=== PATIENT | female | born 1955 | race Caucasian/White ===

== ENCOUNTER 2016-08-02 12:58 | Inpatient (IN) | payer OTHER ==
[2016-08-03] MEDS: CYCLOBENZAPRINE 10 MG TAB PO PRN ×2 (15:36→21:30)
[2016-08-03] MEDS ORDERED: BISACODYL 10 MG SUPP PR PRN (15:48)
[2016-08-03] MEDS ORDERED: oxyCODONE IR 5 MG TAB PO PRN (15:49)
[2016-08-03] MEDS: ACETAMINOPHEN 500 MG TAB PO SCH ×2 (16:06→21:17)
--- NOTE | 2016-08-03 16:40 | PDOREHIP ---
Admission [facility] - Admission - 3 Day Assessment Period Admission Date/Day 1: 08/03/16 Day 2: 08/04/16 Day 3: 08/05/16 - Active Diagnoses Comorbidities and Co-existing Conditions at Admission: 24039. None of the Above - Skin Conditions Unhealed Pressure Ulcer (1 or more/Stage 1 or >)-Admission: 0. No
[2016-08-03] MEDS: NYSTATIN SUSP 500000 UNIT/5 ML UDCUP PO SCH ×2 (17:18→21:16)
[2016-08-03] MEDS ORDERED: NON-FORMULARY NEW DRUG (Nystatin Susp 5 ML) PO SCH (18:00)
--- NOTE | 2016-08-03 18:04 | GHP ---
[f rep st] HISTORY AND PHYSICAL POST ADMISSION PHYSICIAN EVALUATION AND REHABILITATION TREATMENT PLAN DATE OF ADMISSION: 08/03/2016 DATE OF EVALUATION: 08/03/2016 TIME OF EVALUATION: 1330 REFERRING FACILITY: [facility]. REFERRING PHYSICIAN: Dr. Arellano. IMPAIRMENT GROUP: 14.9 DATE OF ONSET: 07/27/2016 CONSULTING PHYSICIANS: She was seen in consultation by Dr. Garcia with Orthopedic Surgery. REHABILITATION DIAGNOSIS: Multiple trauma with L4 compression fracture and multiple pelvic fractures, status post fall while skiing. ETIOLOGIC DIAGNOSIS: Other multiple trauma. HISTORY OF PRESENT ILLNESS: Mrs. Oliver was skiing at [place] on an easy run when she fell and had immediate pain, and was taken to the [facility]. Imaging there demonstrated fractures. She was transferred to [facility] in [place], where further imaging showed a compression fracture at L4 with ventral epidural hematoma which was indenting the ventral thecal sac and causing mild central canal stenosis, a fracture of the right superior and inferior pubic rami, and an occult right sacral fracture. She was treated with pain control, she was observed for any neurologic compromise. Finally, she was stabilized and transferred to [facility] for rehabilitation of her injuries. STUDIES AND LABS IN THE HOSPITAL: Imaging is as described above. CT of the abdomen and pelvis to rule out traumatic injury showed no solid or hollow visceral organ injury. There were right middle lobe and left lower lobe pulmonary nodules seen, which were most likely benign. There were some cysts noted in the liver. Lab studies: On 07/27/2016, CBC showed a normal white count, hemoglobin was 12.4, hematocrit was 36.3, platelets were 239. A basic metabolic profile on 07/2016, showed normal renal function and electrolytes. Her calcium was somewhat low at 7.9. Normal liver function tests. Her lactic acid was not elevated. PAIN CONTROL: Pain control was initially achieved with patient-controlled analgesia. She was subsequently transitioned to oral long-acting morphine. Cyclobenzaprine was added for muscle spasm. PRECAUTIONS: She is a fall risk, and she has orthopedic spinal precautions with no bending, lifting or twisting of the lumbar spine. PAST MEDICAL HISTORY: 1. Hypothyroidism. 2. Anxiety. 3. Prior fracture of the left shoulder from a ski injury. 4. Osteopenia. PAST SURGICAL HISTORY: She denies history of previous surgeries. PRE-HOSPITAL MEDICATIONS: She was taking vitamin D, omega-3 fatty acids, venlafaxine 37.5 mg daily, and levothyroxine 125 mcg daily. ADMISSION MEDICATIONS: 1. Cholecalciferol 1000 units p.o. daily. 2. Cyclobenzaprine 10 mg p.o. t.i.d. p.r.n. 3. Levothyroxine 125 mcg p.o. daily. 4. Morphine SR 50 mg p.o. twice daily. 5. Nystatin 500,000 units p.o. 5 times a day. 6. Beatty-3 fatty acids 1000 mg p.o. daily. 7. Venlafaxine XR 37.5 mg p.o. daily. 8. Vitamin B complex 1 p.o. daily. ALLERGIES: There are no known drug allergies. FAMILY HISTORY: Noncontributory. PSYCHOSOCIAL HISTORY: She is . She lives with her . She is not currently working. Her mother lives with them, on hospice. This patient's major activities have been taking care of her mother and coordinating her care. She is a nonsmoker. She uses occasional alcohol and occasional marijuana. REVIEW OF SYSTEMS: She denies fevers or chills, weight gain or weight loss, feeling excessively hot or cold, cough, dyspnea, chest pain, palpitations, nausea or vomiting. She has constipation, she has a reduced appetite. Her last bowel movement was 2 days ago, after being given a suppository. She denies joint pain or joint swelling other than in her right groin, where she has increased pain with weightbearing. She denies skin rash or skin breakdown. She denies any symptoms of head trauma including no headache; vision changes; difficulty swallowing; weakness, numbness or tingling of the extremities. She denies tremor. CURRENT LEVEL OF FUNCTION: Per the preadmission screen. Regarding diet, feeding, and swallowing, she required set up. For grooming, she required set up. For bathing, she needed assistance. For dressing, she needed maximal assistance to don the Luis brace. For toileting, she needed assistance. For bed mobility, she needed contact guard to minimal assistance. For transfers, she required contact guard assistance. Balance was poor. Endurance was poor. She was able to ambulate 150 feet with contact guard assist using a front- wheeled walker. Communication was within normal limits. Regarding cognition, she was noted to need some cues to maintain spinal precautions. IMPRESSION: Mrs. Oliver is a 61-year-old woman who had a low velocity fall while skiing and suffered significant fractures including an L4 compression fracture with a ventral hematoma causing compression of the thecal sac, superior and inferior pubic rami fractures, and an occult sacral fracture. She was hospitalized long enough to ensure that there were no neurologic consequences of the ventral hematoma, and that pain was adequately controlled. She is appropriate for inpatient rehabilitation. She will benefit from physical and occupational therapy to optimize her mobility and activities of daily living. She will benefit from rehabilitation nursing regarding fall risk , bowel and bladder, skin integrity, medication management and medication education. She will be benefit from the care of a physician primarily regarding pain control, and also regarding bowel and bladder, and adverse side effects of pain medications. Her goal is to complete rehabilitation and return home with her family. For a safe discharge, she will need to achieve modified independence for mobility and ADLs. She will need to be able to adhere to her spinal precautions. She will need to be able to don her back brace with contact guard assist. She will need to achieve medication management. She will need to have her pain controlled, and there will need to be family training education. She will have therapy with physical therapy and occupational therapy for 90 minutes per day for each discipline, on 5-7 days per week. Her expected duration of stay is 7-10 days. It is anticipated that upon discharge, she will continue to benefit from home health services, including occupational therapy and physical therapy. ASSESSMENT AND PLAN: 1. L4 vertebral compression fracture and right-sided pelvic fractures. Pain control will be continued as ordered out of the hospital with morphine SR 15 mg twice daily and cyclobenzaprine 10 mg t.i.d. p.r.n. Additionally, acetaminophen will be prescribed at 1000 mg scheduled t.i.d. and oxycodone will be prescribed at 5 to 10 mg q.3 hours p.r.n. 2. Debility status post multiple trauma. Physical and occupational therapy to optimize mobility and activities of daily living. 3. Constipation. Polyethylene glycol and senna have been scheduled, and a bisacodyl suppository has been added as a p.r.n. 4. Likely osteoporosis. This was discussed with the patient, that though her bone density scan showed osteopenia, the multiple fractures indicate that she truly does have osteoporosis. She is advised to follow up with her primary care provider or with an song writer after discharge to consider anti- reabsorptive medications. We will continue cholecalciferol at 1000 units daily. If there are other indications for blood tests, we will recheck her vitamin D level. 5. Hypothyroidism. Continue levothyroxine. 6. History of anxiety. Continue venlafaxine. 7. Prophylaxis: We will continue enoxaparin that was ordered out of the hospital, though anticipate that this will be discontinued as her mobility improves. /[id number]/MODL MTDD
[2016-08-03] MEDS: morphINE SR 15 MG TAB PO SCH (21:16)
[2016-08-03] MEDS: SENNOSIDES 1 TAB PO SCH (21:17)
[2016-08-04] MEDS: LEVOTHYROXINE 125 MCG TAB PO SCH (06:22)
[2016-08-04] MEDS: CYCLOBENZAPRINE 10 MG TAB PO PRN ×2 (06:23→21:24)
[2016-08-04] MEDS: NYSTATIN SUSP 500000 UNIT/5 ML UDCUP PO SCH ×5 (06:23→21:24)
[2016-08-04] MEDS: ACETAMINOPHEN 500 MG TAB PO SCH ×3 (07:23→21:25)
[2016-08-04] MEDS: SENNOSIDES 1 TAB PO SCH ×2 (07:24→21:25)
[2016-08-04] MEDS: CHOLECALCIFEROL VIT D3 1,000 UNITS TAB PO SCH (07:24)
[2016-08-04] MEDS: VITAMIN B COMPLEX 1 EA CAP/TAB PO SCH (07:25)
[2016-08-04] MEDS: OMEGA-3 FATTY ACIDS 1,000 MG CAP PO SCH (07:25)
[2016-08-04] MEDS: VENLAFAXINE XR 37.5 MG CAP PO SCH (07:25)
[2016-08-04] MEDS: POLYETHYLENE GLYCOL 3350 17 GM PKT PO SCH (07:25)
[2016-08-04] MEDS: morphINE SR 15 MG TAB PO SCH ×2 (07:26→21:25)
--- NOTE | 2016-08-04 08:25 | SOAPPROG ---
SOAP Progress Note Assessment/Plan: Assessment: 61 yo F s/p fall while skiing 07/27/16 with L4 vertebral compression fracture, ventral hematoma causing thecal sac compression, and pelvic fractures (R superior and inferior pubic rami, R sacrum) * L4 vertebral compression fracture and right-sided pelvic fractures. Adequate pain control with morphine SR 15 mg twice daily, cyclobenzaprine 10 mg t.i.d. p.r.n. and acetaminophen 1000 mg scheduled t.i.d. Oxycodone is available 5 to 10 mg q.3 hours p.r.n. but she has not used it. * Debility status post multiple trauma. Physical and occupational therapy to optimize mobility and activities of daily living. * Constipation. Polyethylene glycol and senna have been scheduled, and a bisacodyl suppository has been added as a p.r.n. * Likely osteoporosis. Bone density scan showed osteopenia, but multiple fractures indicate that she truly does have osteoporosis. She is advised to follow up with her primary care provider or with an embedder after discharge to consider anti-reabsorptive medications. Continue cholecalciferol at 1000 units daily. If there are other indications for blood tests, we will recheck her vitamin D level. * Hypothyroidism. Continue levothyroxine. * History of anxiety. Continue venlafaxine. * Prophylaxis: We will continue enoxaparin that was ordered out of the hospital , though anticipate that this will be discontinued as her mobility improves. Follow-up with Orthopedic Spine at [facility] week of 08/16/16. Follow -up with Orthopedics Dr. Garcia. Follow-up chest CT in early October 2016 regarding pulmonary nodules. Follow-up with PCP or Endocrinology regarding osteoporosis. 08/04/16 09:42 Subjective: Has some pain 3 - 4/10 with movement or weightbearing. Slept well; pain did not interfere. No cough/dyspnea, f/c. Objective: Vital Signs Temp Pulse Resp BP Pulse Ox 36.9 C 65 16 110/64 94 08/04/16 06:40 08/04/16 06:40 08/04/16 06:40 08/04/16 06:40 08/04/16 06:40 08/03/16 08/04/16 08/05/16 05:59 05:59 05:59 Intake Total 1000 Output Total 1400 Balance -400 ICD10 Worksheet Patient Problems: Problems Problem Status Onset Compression fracture of L4 lumbar vertebra Acute Epidural hematoma Acute Multiple pelvic fractures Acute
[2016-08-05] MEDS: CYCLOBENZAPRINE 10 MG TAB PO PRN ×2 (06:28→21:30)
[2016-08-05] MEDS: LEVOTHYROXINE 125 MCG TAB PO SCH (06:28)
[2016-08-05] MEDS: NYSTATIN SUSP 500000 UNIT/5 ML UDCUP PO SCH ×5 (06:29→21:30)
[2016-08-05] MEDS: POLYETHYLENE GLYCOL 3350 17 GM PKT PO SCH (09:48)
[2016-08-05] MEDS: VITAMIN B COMPLEX 1 EA CAP/TAB PO SCH (09:48)
[2016-08-05] MEDS: CHOLECALCIFEROL VIT D3 1,000 UNITS TAB PO SCH (09:48)
[2016-08-05] MEDS: VENLAFAXINE XR 37.5 MG CAP PO SCH (09:48)
[2016-08-05] MEDS: SENNOSIDES 1 TAB PO SCH ×2 (09:48→21:30)
[2016-08-05] MEDS: OMEGA-3 FATTY ACIDS 1,000 MG CAP PO SCH (09:48)
[2016-08-05] MEDS: ACETAMINOPHEN 500 MG TAB PO SCH ×3 (09:48→21:30)
[2016-08-05] MEDS: morphINE SR 15 MG TAB PO SCH ×2 (09:49→21:30)
--- NOTE | 2016-08-05 14:07 | SOAPPROG ---
SOAP Progress Note Assessment/Plan: Assessment: 61 yo F s/p fall while skiing 07/27/16 with L4 vertebral compression fracture, ventral hematoma causing thecal sac compression, and pelvic fractures (R superior and inferior pubic rami, R sacrum) * L4 vertebral compression fracture and right-sided pelvic fractures. Adequate pain control with morphine SR 15 mg twice daily, cyclobenzaprine 10 mg t.i.d. p.r.n. and acetaminophen 1000 mg scheduled t.i.d. Oxycodone is available 5 to 10 mg q.3 hours p.r.n. but she has not used it. * Debility status post multiple trauma. Physical and occupational therapy to optimize mobility and activities of daily living. * Constipation. Polyethylene glycol and senna have been scheduled, and a bisacodyl suppository has been added as a p.r.n. * Likely osteoporosis. Bone density scan showed osteopenia, but multiple fractures indicate that she truly does have osteoporosis. She is advised to follow up with her primary care provider or with an airborne operations manager after discharge to consider anti-reabsorptive medications. Continue cholecalciferol at 1000 units daily. If there are other indications for blood tests, we will recheck her vitamin D level. * Hypothyroidism. Continue levothyroxine. * History of anxiety. Continue venlafaxine. * Prophylaxis: Mobility has improved. She's ambulating 120'3x/day. Will d/c SCDs.. Follow-up with Orthopedic Spine at [facility] week of 08/16/16. Follow -up with Orthopedics Dr. Garcia. Follow-up chest CT in early October 2016 regarding pulmonary nodules. Follow-up with PCP or Endocrinology regarding osteoporosis. 08/05/16 14:06 Subjective: Pain adequately controlled. SCDs interfere with sleep and she requests D/C. O/ W w/out complaint. No f/c, cough/dyspnea. Objective: Vital Signs Temp Pulse Resp BP Pulse Ox 36.7 C 66 16 103/63 93 08/05/16 06:47 08/05/16 06:47 08/05/16 06:47 08/05/16 06:47 08/05/16 06:47 08/04/16 08/05/16 08/06/16 05:59 05:59 05:59 Intake Total 1000 1490 300 Output Total 1400 1800 775 Balance -400 -310 -475 Physical Exam - Physical Exam General Appearance: WD/WN, alert, no apparent distress Respiratory: normal breath sounds, No crackles, No rhonchi, No wheezing Cardiac/Chest: regular rate, rhythm, No edema, No diastolic murmur, No systolic murmur Skin: normal color, warm/dry Neuro/Psych: no motor/sensory deficits, alert, normal mood/affect, oriented x 3 ICD10 Worksheet Patient Problems: Problems Problem Status Onset Compression fracture of L4 lumbar vertebra Acute Epidural hematoma Acute Multiple pelvic fractures Acute
[2016-08-06] MEDS: NYSTATIN SUSP 500000 UNIT/5 ML UDCUP PO SCH ×2 (06:19→09:54)
[2016-08-06] MEDS: LEVOTHYROXINE 125 MCG TAB PO SCH (06:19)
[2016-08-06] MEDS: CYCLOBENZAPRINE 10 MG TAB PO PRN (06:19)
[2016-08-06 07:14] VITALS: RESP 16
[2016-08-06] MEDS: OMEGA-3 FATTY ACIDS 1,000 MG CAP PO SCH (09:49)
[2016-08-06] MEDS: CHOLECALCIFEROL VIT D3 1,000 UNITS TAB PO SCH (09:49)
[2016-08-06] MEDS: VITAMIN B COMPLEX 1 EA CAP/TAB PO SCH (09:49)
[2016-08-06] MEDS: VENLAFAXINE XR 37.5 MG CAP PO SCH (09:50)
[2016-08-06] MEDS: morphINE SR 15 MG TAB PO SCH ×2 (09:50→21:29)
[2016-08-06] MEDS: ACETAMINOPHEN 500 MG TAB PO SCH ×3 (09:50→21:29)
[2016-08-06] MEDS: POLYETHYLENE GLYCOL 3350 17 GM PKT PO SCH (09:50)
[2016-08-06] MEDS: SENNOSIDES 1 TAB PO SCH ×2 (09:50→21:29)
--- NOTE | 2016-08-06 09:54 | SOAPPROG ---
SOAP Progress Note Assessment/Plan: Assessment: 61 yo F s/p fall while skiing 07/27/16 with L4 vertebral compression fracture, ventral hematoma causing thecal sac compression, and pelvic fractures (R superior and inferior pubic rami, R sacrum) * Debility status post multiple trauma. Initial FIM 98. SBA for bed mobility. Supervision for transfers. I for UB dressing including back brace; mod I for LB. Continue physical and occupational therapy to optimize mobility and activities of daily living. * L4 vertebral compression fracture and right-sided pelvic fractures. Discussed pain management 08/06/16. Change morphine SR 15 mg from BID to QD starting 08/07/16. Continue oxycodone 5 - 10 mg Q 3 - 4 hr PRN. Continue cyclobenzaprine 10 mg t.i.d. p.r.n. and acetaminophen 1000 mg scheduled t.i.d. * Thrush? Has been on nystatin starting during her acute hospitalization. Symptoms are improved but not resolved; no thrush seen on exam. D/C nystatin. If symptoms worsen, would treat with clotrimazole dixon. Unclear why she would have thrush, other than stress? * Constipation. Polyethylene glycol and senna have been scheduled, and a bisacodyl suppository has been added as a p.r.n. * Likely osteoporosis. Bone density scan showed osteopenia, but multiple fractures indicate that she truly does have osteoporosis. She is advised to follow up with her primary care provider or with an chief operating officer after discharge to consider anti-reabsorptive medications. Continue cholecalciferol at 1000 units daily. If there are other indications for blood tests, we will recheck her vitamin D level. * Hypothyroidism. Continue levothyroxine. * History of anxiety. Continue venlafaxine. * Prophylaxis: Mobility has improved. She's ambulating 120' 3x/day. Will d/c SCDs.. Attended staffing, 15 min. D/W case mgmt, nursing, day care provider, pharmacist, PT, OT. Doing well, plan for discharge home 08/09/16. Follow-up with Orthopedic Spine at [facility] week of 08/16/16. Follow -up with Orthopedics Dr. Garcia. Follow-up chest CT in early October 2016 regarding pulmonary nodules. Follow-up with PCP or Endocrinology regarding osteoporosis. 08/06/16 13:49 Subjective: Still has some throat discomfort. O/W w/out complaints. No f/c, cough/ dyspnea. Pain adequately controlled. Objective: Vital Signs Temp Pulse Resp BP Pulse Ox 36.8 C 64 16 112/69 97 08/06/16 07:13 08/06/16 07:13 08/06/16 07:13 08/06/16 07:13 08/06/16 07:13 08/05/16 08/06/16 08/07/16 05:59 05:59 05:59 Intake Total 1490 1540 Output Total 1800 1675 Balance -310 -135 - Time Spent With Patient Time Spent With Patient: Greater than 35 minutes floor time today, including more than 50% of time in coordination of care during staffing, and counseling patient. Physical Exam - Physical Exam General Appearance: WD/WN, alert, no apparent distress EENT: normal ENT inspection (No mucosal erythema/exudate/plaques. Mallampati class 3 and posterior oropharynx not well visualized.) Respiratory: No respiratory distress, No accessory muscle use Skin: normal color, warm/dry ICD10 Worksheet Patient Problems: Problems Problem Status Onset Compression fracture of L4 lumbar vertebra Acute Epidural hematoma Acute Multiple pelvic fractures Acute
[2016-08-06] MEDS ORDERED: oxyCODONE IR 5 MG TAB PO PRN (13:53)
[2016-08-07] MEDS: LEVOTHYROXINE 125 MCG TAB PO SCH (05:52)
[2016-08-07] MEDS: ACETAMINOPHEN 500 MG TAB PO SCH ×3 (08:21→21:32)
[2016-08-07] MEDS: POLYETHYLENE GLYCOL 3350 17 GM PKT PO SCH (08:21)
[2016-08-07] MEDS: CHOLECALCIFEROL VIT D3 1,000 UNITS TAB PO SCH (08:22)
[2016-08-07] MEDS: SENNOSIDES 1 TAB PO SCH ×2 (08:22→21:18)
[2016-08-07] MEDS: OMEGA-3 FATTY ACIDS 1,000 MG CAP PO SCH (08:22)
[2016-08-07] MEDS: VITAMIN B COMPLEX 1 EA CAP/TAB PO SCH (08:22)
[2016-08-07] MEDS: VENLAFAXINE XR 37.5 MG CAP PO SCH (08:24)
--- NOTE | 2016-08-07 11:12 | SOAPPROG ---
SOAP Progress Note Assessment/Plan: Assessment: * Debility status post multiple trauma. Initial FIM 98. SBA for bed mobility. Supervision for transfers. I for UB dressing including back brace; mod I for LB. Continue physical and occupational therapy to optimize mobility and activities of daily living. D/W PT AND OT THAT PATIENT NEEDS TO BE CLEARED FOR HI WITH FWW IN ROOM AND HALLS PRIOR TO D/C * L4 vertebral compression fracture and right-sided pelvic fractures. Discussed pain management 08/06/16. Change morphine SR 15 mg from BID to QD starting 08/07/16. Continue oxycodone 5 - 10 mg Q 3 - 4 hr PRN. Continue cyclobenzaprine 10 mg t.i.d. p.r.n. and acetaminophen 1000 mg scheduled t.i.d. D/W PATIENT PAIN MANAGEMENT STRATEGIES INCLUDING CONTINUING THE MORPHINE AT NIGHT FOR 3-4 MORE DAYS AND TAKE TYLENOL Q4-6 HRS AND IF NEEDED OXYCODONE 5-10 MG FOR PAIN LEVEL ABOVE 5. SHE WILL NOT EXCEED 2400 MG OF TYLENOL PER DAY. * Thrush? Has been on nystatin starting during her acute hospitalization. Symptoms are improved but not resolved; no thrush seen on exam. D/C nystatin. If symptoms worsen, would treat with clotrimazole dixon. Unclear why she would have thrush, other than stress? SXS STABLE. ? ALLERGY RELATED. ADVISED THAT SHE SHOULD SEE ENT AFTER D/C IF SXS PERSIST. * Constipation. Polyethylene glycol and senna have been scheduled, and a bisacodyl suppository has been added as a p.r.n. * Likely osteoporosis. Bone density scan showed osteopenia, but multiple fractures indicate that she truly does have osteoporosis. She is advised to follow up with her primary care provider or with an motion picture camera operator after discharge to consider anti-reabsorptive medications. Continue cholecalciferol at 1000 units daily. If there are other indications for blood tests, we will recheck her vitamin D level. * Hypothyroidism. Continue levothyroxine. * History of anxiety. Continue venlafaxine. * Prophylaxis: Mobility has improved. She's ambulating 120' 3x/day. Will d/c SCDs.. Plan: 08/07/16 11:14 Subjective: She reports current pain level as 2/10. She reports she took Tylenol this am. She c/o some hoarseness which has been present for 2 weeks. She denies dysphagia. She expresses no difficulty with trying to wean off opiates. Objective: Vital Signs Temp Pulse Resp BP Pulse Ox 36.7 C 66 16 129/75 H 95 08/07/16 06:18 08/07/16 06:18 08/07/16 06:18 08/07/16 06:18 08/07/16 06:18 08/06/16 08/07/16 08/08/16 05:59 05:59 05:59 Intake Total 1540 1640 Output Total 1675 2201 600 Balance -135 -461 -600 Physical Exam - Physical Exam General Appearance: WD/WN, alert, no apparent distress EENT: PERRL/EOMI, pharyngeal erythema Neck: non-tender, supple Respiratory: lungs clear, normal breath sounds Cardiac/Chest: No edema Abdomen: normal bowel sounds, non-tender, soft Back: Other (TLSO IN PLACE.) Skin: normal color, No warm/dry Neuro/Psych: alert, normal mood/affect, oriented x 3, abnormal gait (STEP TO GAIT WITH WALKER. NO EVIDENCE OF KNEE OR ANKLE INSTABILITY.) ICD10 Worksheet Patient Problems: Problems Problem Status Onset Compression fracture of L4 lumbar vertebra Acute Epidural hematoma Acute Multiple pelvic fractures Acute
[2016-08-07] MEDS: CYCLOBENZAPRINE 10 MG TAB PO PRN (14:01)
[2016-08-07] MEDS: morphINE SR 15 MG TAB PO SCH (21:18)
[2016-08-08] MEDS: LEVOTHYROXINE 125 MCG TAB PO SCH (06:17)
[2016-08-08] MEDS: SENNOSIDES 1 TAB PO SCH ×2 (09:24→21:11)
[2016-08-08] MEDS: ACETAMINOPHEN 500 MG TAB PO SCH ×3 (09:24→21:00)
[2016-08-08] MEDS: VENLAFAXINE XR 37.5 MG CAP PO SCH (09:24)
[2016-08-08] MEDS: OMEGA-3 FATTY ACIDS 1,000 MG CAP PO SCH (09:24)
[2016-08-08] MEDS: POLYETHYLENE GLYCOL 3350 17 GM PKT PO SCH (09:24)
[2016-08-08] MEDS: CHOLECALCIFEROL VIT D3 1,000 UNITS TAB PO SCH (09:25)
[2016-08-08] MEDS: VITAMIN B COMPLEX 1 EA CAP/TAB PO SCH (09:25)
--- NOTE | 2016-08-08 12:20 | SOAPPROG ---
SOAP Progress Note Assessment/Plan: Assessment: * Debility status post multiple trauma. Initial FIM 98. SBA for bed mobility. Supervision for transfers. I for UB dressing including back brace; mod I for LB. Continue physical and occupational therapy to optimize mobility and activities of daily living. D/W PT AND OT THAT PATIENT NEEDS TO BE CLEARED FOR MT WITH FWW IN ROOM AND HALLS PRIOR TO D/C * L4 vertebral compression fracture and right-sided pelvic fractures. Discussed pain management 08/06/16. Change morphine SR 15 mg from BID to QD starting 08/07/16. Continue oxycodone 5 - 10 mg Q 3 - 4 hr PRN. Continue cyclobenzaprine 10 mg t.i.d. p.r.n. and acetaminophen 1000 mg scheduled t.i.d. D/W PATIENT PAIN MANAGEMENT STRATEGIES INCLUDING CONTINUING THE MORPHINE AT NIGHT FOR 3-4 MORE DAYS AND TAKE TYLENOL Q4-6 HRS AND IF NEEDED OXYCODONE 5-10 MG FOR PAIN LEVEL ABOVE 5. SHE WILL NOT EXCEED 3000 MG OF TYLENOL PER DAY. * Thrush? Has been on nystatin starting during her acute hospitalization. Symptoms are improved but not resolved; no thrush seen on exam. D/C nystatin. If symptoms worsen, would treat with clotrimazole dixon. Unclear why she would have thrush, other than stress? SXS STABLE. ? ALLERGY RELATED. ADVISED THAT SHE SHOULD SEE ENT AFTER D/C IF SXS PERSIST. * Constipation. Polyethylene glycol and senna have been scheduled, and a bisacodyl suppository has been added as a p.r.n. * Likely osteoporosis. Bone density scan showed osteopenia, but multiple fractures indicate that she truly does have osteoporosis. She is advised to follow up with her primary care provider or with an ultrasonic hand solderer after discharge to consider anti-reabsorptive medications. Continue cholecalciferol at 1000 units daily. If there are other indications for blood tests, we will recheck her vitamin D level. * Hypothyroidism. Continue levothyroxine. * History of anxiety. Continue venlafaxine. * Plan: 08/07/16 11:14 08/08/16 12:19 Subjective: No complaints this am Objective: Vital Signs Temp Pulse Resp BP Pulse Ox 36.6 C 78 16 130/84 H 95 08/08/16 06:29 08/08/16 06:29 08/08/16 06:29 08/08/16 06:29 08/08/16 06:29 08/07/16 08/08/16 08/09/16 05:59 05:59 05:59 Intake Total 6503 400 Output Total 6679 2161 Balance -080 -3072 Physical Exam - Physical Exam General Appearance: WD/WN, alert, no apparent distress Neck: full range of motion, supple Respiratory: chest non-tender, lungs clear, normal breath sounds Cardiac/Chest: No edema, No JVD Abdomen: normal bowel sounds, non-tender, soft Back: Normal inspection, No CVA tenderness Skin: normal color, warm/dry Neuro/Psych: no motor/sensory deficits, alert, oriented x 3, No motor weakness, No sensory deficit ICD10 Worksheet Patient Problems: Problems Problem Status Onset Compression fracture of L4 lumbar vertebra Acute Epidural hematoma Acute Multiple pelvic fractures Acute
[2016-08-08] MEDS: morphINE SR 15 MG TAB PO SCH (21:00)
[2016-08-09] MEDS: LEVOTHYROXINE 125 MCG TAB PO SCH (06:07)
[2016-08-09] MEDS: ACETAMINOPHEN 500 MG TAB PO SCH (07:47)
[2016-08-09] MEDS: SENNOSIDES 1 TAB PO SCH (07:49)
[2016-08-09] MEDS: VITAMIN B COMPLEX 1 EA CAP/TAB PO SCH (07:50)
[2016-08-09] MEDS: CYCLOBENZAPRINE 10 MG TAB PO PRN (07:50)
[2016-08-09] MEDS: VENLAFAXINE XR 37.5 MG CAP PO SCH (07:50)
[2016-08-09] MEDS: OMEGA-3 FATTY ACIDS 1,000 MG CAP PO SCH (07:50)
[2016-08-09] MEDS: POLYETHYLENE GLYCOL 3350 17 GM PKT PO SCH (07:54)
[2016-08-09] MEDS: CHOLECALCIFEROL VIT D3 1,000 UNITS TAB PO SCH (07:54)
[2016-08-09 08:30] VITALS: BP 111/71; PULSE 70; TEMP 98.2; O2SAT 94
--- NOTE | 2016-08-09 17:03 | PDOREHIP ---
Admission [facility] - Admission - 3 Day Assessment Period Admission Date/Day 1: 08/03/16 Day 2: 08/04/16 Day 3: 08/05/16 Discharge [facility] - Discharge - 3 Day Assessment Period 2 Days Prior to Anticipated Discharge Date: 08/07/16 1 Day Prior to Anticipated Discharge Date: 08/08/16 Anticipated Discharge Date: 08/09/16 - Discharge Skin Conditions Unhealed Pressure Ulcer (1 or more/Stage 1 or >)-Discharge: 0. No
--- NOTE | 2016-08-09 22:03 | GDS ---
[f rep st] DISCHARGE SUMMARY ADMITTING DIAGNOSIS: Multiple trauma with L4 compression fracture and multiple pelvic fractures. DISCHARGE DIAGNOSIS: Multiple trauma with L4 compression fracture and multiple pelvic fractures. CONSULTATIONS: There were none. PROCEDURES: There were none. COMPLICATIONS: There were none. HISTORY AND HOSPITAL COURSE: The patient was admitted to [facility] unit from [facility]. She had suffered a fall while skiing on 08/02/2016. She was initially evaluated at [facility] in [facility], where she was diagnosed with pelvic fractures and an L4 compression fracture. There was a hematoma on the ventral aspect of L4 in the epidural location, so she was observed for stability before transfer to [facility] in [place]. Pain control was achieved and she was transferred for inpatient rehabilitation. She had steady improvement in her function. Her initial Functional [place] Measure was 98 on 08/06/2016, wihch is consistent with [facility] level of function. She required standby assist for bed mobility and supervision for transfers. She was independent with upper body dressing, including donning and doffing her back brace. She had modified independence with assistive devices for lower body dressing. Pain control was achieved with morphine sustained-release 15 mg b.i.d. and oxycodone 5-10 mg q.3- 4 hours p.r.n. Additionally, she had cyclobenzaprine 10 mg 3 times a day as needed and acetaminophen scheduled 1000 mg 3 times a day. Her pain improved. On 08/07/2016, morphine sustained-release was changed to q.h.s. only and she was not using the oxycodone. She was using nystatin oral when she was admitted for presumed thrush. There was there was no thrush observed on oropharyngeal examination. The nystatin was discontinued. She continued to have some throat discomfort of an unclear etiology. Given that she had sustained several fractures with a relatively low impact fall , she likely has osteoporosis. She reported history of a bone density scan showing osteopenia. She was continued on cholecalciferol 1000 units daily. She was advised to follow up with primary care or an senior communications engineer to address the question of antiresorptive therapy for osteoporosis. There were no labs or imaging studies done while she was in the hospital. DISCHARGE PLAN: 1. Condition upon discharge is good. 2. Activity is ad adenike, but recommend no driving and to maintain spinal precautions for her back with no bending, lifting or twisting, until cleared by Orthopedic Surgery. 3. Diet is regular. 4. Date of next appointment: She will see orthopedic surgeon, Dr. Keeley Velasquez on 08/10/2016 and she will have follow up with her primary care provider, Dr. Kim Oro, in approximately 2 weeks. MEDICATIONS AT DISCHARGE: 1. Vitamin B complex 1 p.o. daily. 2. [place]-3 fatty acids 1000 mg p.o. daily. 3. Cholecalciferol 1000 units p.o. daily. 4. Oxycodone 5-10 mg q.3 hours p.r.n. 5. Morphine sustained-release 15 mg q.h.s. 6. Venlafaxine 37.5 mg p.o. daily. 7. Senna 1 p.o. b.i.d. 8. Polyethylene glycol 17 g p.o. daily in water. 9. Levothyroxine 125 mcg p.o. daily. 10. Cyclobenzaprine 10 mg p.o. t.i.d. p.r.n. 11. Acetaminophen 1000 mg p.o. t.i.d. ISSUES TO BE ADDRESSED AT FOLLOWUP: 1. Status of L4 compression fracture. She is to continue wearing the back brace until cleared by Orthopedic Surgery and she will have follow up with Dr. Velasquez. 2. Pain control. Her pain has been improving during her stay. She can follow up regarding any changes to her medication regimen with Dr. Velasquez or with her primary care provider, Dr. Oro. 3. Likely osteoporosis. She was advised to consider antiresorptive therapy in consultation with her primary care provider or an senior communications engineer and she should have followup testing of her vitamin D level to be sure that supplementation with 1000 mg daily is adequate. /[id number]/MODL MTDD
== END 2016-08-09 12:15 | disposition home or self-care (01) | DRG 561 ==
LOC: BREH 08-03 13:15
PROVIDERS: ADMIT Internal Medicine; ATTEND Internal Medicine
PROC: F0636ZZ Communicative/Cognitive Integration Skills Treatment of Neurological System - Whole Body (ICD-10-PCS; principal; 2016-08-03)
PROC: F07M3ZZ Motor Function Treatment of Musculoskeletal System - Whole Body (ICD-10-PCS; principal; 2016-08-03)
DX: S32.040D Wedge compression fracture of fourth lumbar vertebra, subsequent encounter for fracture with routine healing (principal); S32.82XD Multiple fractures of pelvis without disruption of pelvic ring, subsequent encounter for fracture with routine healing; K59.00 Constipation, unspecified; M81.0 Age-related osteoporosis without current pathological fracture; E03.9 Hypothyroidism, unspecified; F41.9 Anxiety disorder, unspecified; V00.321D Fall from snow-skis, subsequent encounter; Y93.23 Activity, snow (alpine) (downhill) skiing, snowboarding, sledding, tobogganing and snow tubing; Y92.830 Public park as the place of occurrence of the external cause
CPT/HCPCS: 97110-GP; 97116-GP; 97162-GP; 97165-GO; 97530-GO; 97530-GP; 97535-GO

== ENCOUNTER → 2017-03-29 | Outpatient (CLI) | payer OTHER | LOC: CIMAGING 10:18 | PROVIDERS: ATTEND Physician Assistant Medical | DX: R91.8 Other nonspecific abnormal finding of lung field (principal); K76.89 Other specified diseases of liver | CPT/HCPCS: 71250-PO ==

== ENCOUNTER → 2018-02-01 | Outpatient (CLI) | payer OTHER | LOC: BMCIMAGING 13:09 | PROVIDERS: ATTEND Physician Assistant Medical | DX: Z12.31 Encounter for screening mammogram for malignant neoplasm of breast (principal) ==

== ENCOUNTER → 2018-04-10 | Outpatient (CLI) | payer OTHER | LOC: BMCIMAGING 10:09 | PROVIDERS: ATTEND Physician Assistant Medical | DX: Z13.820 Encounter for screening for osteoporosis (principal); M81.0 Age-related osteoporosis without current pathological fracture; Z78.0 Asymptomatic menopausal state ==